=== PATIENT | female | born 1955 | race Caucasian/White ===

== ENCOUNTER 2019-09-12 11:04 | Outpatient (CLI) | payer OTHER ==
--- NOTE | 2019-09-13 10:00 | DEXA Report ---
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 Regions measured are the AP Spine, femoral neck, and if needed forearm. COMPARISON: None. In accordance with the International Society for Clinical Densitometry (ISCD) guidelines, data from previous exams may be reanalyzed using current recommendations and techniques. This is done to allow a more accurate basis for comparison with the current study. FINDINGS: The data for the lumbar spine is as follows: BMD (g/cm/cm) T-SCORE Z-SCORE REGION L1 1.103 -0.2 0.2 L2 1.309 0.9 1.3 L3 1.254 0.5 0.9 L4 1.341 1.2 1.6 TOTAL 1.255 0.6 1.0 NOTE: All evaluable vertebrae are used for classification The data for the hip is as follows: BMD (g/cm/cm) T-SCORE Z-SCORE REGION Neck 0.878 -1.2 -0.5 TOTAL 0.932 -0.6 -0.3 NOTE: The femoral neck or total proximal femur, whichever is lowest, is used for classification. IMPRESSION: THE WHO CLASSIFICATION BASED ON THE INTERNATIONAL REFERENCE STANDARD IS OSTEOPENIA. THE FRACTURE RISK IS INCREASED. RECOMMENDATION: Patients with diagnosis of osteoporosis or osteopenia should have regular bone mineral density assessment. For those eligible for Medicare, routine testing is allowed once every 2 years. Testing frequency can be increased for patients who have rapidly progressing disease or for those who are receiving medical therapy to restore bone mass. COMMENT: World Health Organization (WHO) definitions for osteoporosis and osteopenia: NORMAL BMD: T-score at -1.0 or higher, fracture risk is low OSTEOPENIA BMD: T-score between -1.0 and -2.5, fracture risk is increased. OSTEOPOROSIS BMD: T-score at -2.5 or lower, fracture risk is high. National Osteoporosis Foundation recommends: 1. Obtain adequate dietary calcium (at least 1200 mg per day) and vitamin D (400-800 international units per day). 2. Participate, as appropriate, in regular weightbearing and muscle-strengthening exercise. 3. Avoid tobacco use and reduce alcohol and caffeine intake. 4. For more detailed information see the website at www.NOF.org.
== END 2019-09-12 11:05 | disposition home or self-care (01) ==
LOC: DI 11:04
PROVIDERS: ATTEND Family Medicine
DX: M85.88 Other specified disorders of bone density and structure, other site (principal)
CPT/HCPCS: 77080

== ENCOUNTER 2021-04-13 10:48 | Outpatient (CLI) | payer MEDICARE, OTHER ==
--- NOTE | 2021-04-13 22:01 | SLEEP CARE CONSULTATION ---
Information from patient questionnaire entered by Dilcia Gomez. I have reviewed and concur with the information entered by Dilcia Gomez. This document represents the service I personally performed and the decisions made by me, Ezio Jones MD, [facility]. History of Present Illness Service Date and Time: 04/13/2021 1048 Reason for Visit: New patient Chief Complaint: reports: Insomnia, Unrefreshed sleep, Snoring, Excessive daytime sleepiness, Fatigue, Frequent awakenings at night, Other (night terrors, RLS) Date of Onset: many for 5 years plus Usual bedtime: varies Time it takes to fall asleep: I get up if I haven't fallen asleep within an hour, try again Snores at night: Yes Observed to quit breathing while asleep: No Sleeps alone due to snoring: No (once or twice) Number of times waking at night: 4-8 Reasons for waking at night: reports: Snoring, Pain, Bathroom, Other (night terrors, RLS, me yelling out) Toss, Turn, or Twitch while sleeping: Yes Recalls having dreams: Yes (sometimes) Usually gets out of bed at: 7-9 am Feels refreshed in the morning: No Morning headache: Yes (sometimes, resolves between 10am - 12pm) Sleepy or fatigued during the day: Yes Ever fallen asleep while driving: No Takes day naps: No Dreams during day naps: Yes Prior sleep studies: No Additional HPI information: I have the pleasure of seeing Ms. Salazar today regarding the possibility of her having obstructive sleep apnea. As you know, she is a 65 year old lady who complains of loud snore, frequent awakenings, insomnia, night terrors, and restless leg syndrome. She reports having had intermittent symptoms throughout her life but worse this past year. Her sleep pattern also shifted from 11 pm 6 am to 2 am 9 am. She has not been working and has no particular time she must get up. She snores loudly according to her . He has never seen her quit breathing. She complains of restless leg syndrome that bothers her more in the evenings. Walking around only helps partially. At night, her legs kick. She as night terrors that involve sitting up and screaming. During the day she feels tired but does not take a nap. She takes Ritalin 10 mg 2 to 4 times a day for attention deficit disorder. She has a son that has obstructive sleep apnea-hypopnea. 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 Patient is and lives in [place]. Have you smoked in the past 12 months: No Alcohol use: No Caffeine use: Yes Caffeine amount and frequency: 3-5 cups daily Family History Family history of sleep disordered breathing: Yes Family Hx Sleep Apnea: Father: Snoring, Sibling: Snoring, Other: Sleep apnea - Treated (son) Allergies and Home Medications Drug allergies reviewed: Yes Home medication list reviewed: Yes Review of Systems Weight gain over past 5 years: 40 Cardiovascular: reports: have to sleep sitting up Respiratory: reports: shortness of breath, wheeze, sputum production, chronic cough Gastrointestinal: reports: heartburn, nausea Urinary: reports: frequency, urgency Neurological: reports: headaches, gait or balance problems Psychiatric: reports: Attention Deficit Hyperactivity Ear/Nose/Throat: reports: nasal congestion, sinus problems, dry mouth/throat, hoarseness Endocrine: reports: thyroid disease, sluggishness, too hot or cold, excessive thirst, increased urination Musculoskeletal: reports: joint pain, neck pain, back pain, joint swelling, muscle pain or cramping, mobility problems Immunologic: reports: sneezing, rash, itching, allergies to food or environment Physical Exam Vital signs obtained and entered by: Dr. Jones Blood Pressure: 180/90 Cuff size: regular Heart Rate: 77 O2 Saturation: 97 Weight: 240 lb Neck circumference: 16 Mood/affect: normal HEENT: No craniofacial malformation Nostrils: patent to airflow Turbinates: normal Septum: midline Mouth and throat: narrow oropharynx Soft palate: long Hard palate: normal Uvula: normal Uvula visualization: 25% Mallampati Class III Tongue: normal in size Tonsils: small Chin and jaw: normal size and position Neck: normal w/o lymphadenopathy or thyromegaly Heart: regular rate and rhythm Lungs: clear bilaterally Abdomen: soft, non-tender Extremities: 2+ edema Neurologic: intact, no focal deficits Impression and Plan IMPRESSION: 1. Obstructive Sleep Apnea-Hypopnea Syndrome, as evident by history of loud snoring, frequent awakenings during the night, unrefreshed sleep, cognitive impairment, and fatigue. Her STOPBANG score is 5 (S, T, B, A, N) which puts her at a high risk of having the sleep-disordered breathing. I recommend proceeding to polysomnography to confirm the diagnosis and to assess severity. If she has significant sleep disordered breathing, a manual CPAP titration study will also be performed to find the optimal treatment pressure. I informed the patient of what the sleep studies involve and after some discussi on, she agreed to proceed. 2. Night Terrors, most likely a non-REM parasomnia by her history. The precipitating factor is unclear but obstructive sleep apnea-hypopnea may be a contributing factor. 3. Restless leg syndrome. The sleep study can confirm the diagnosis by demonstrating frequent periodic leg movement of sleep. The patient does have lo w iron level but normal ferritn level. She is not anemic. 4. Circadian Rhythm Disorder. Not having to wake up to a working schedule last year can cause delayed sleep phase syndrome. Ritalin could be a contributing factor. To correct it, all she has to do is set an alarm clock to slowly wake up earlier, e.g. 30 60 minutes earlier/week. Bright light exposure in the morning when she first get up in the morning can help to reset her circadian rhythm. Plan: 1. Schedule polysomnography +/- manual CPAP titration study and return in 1 to 2 weeks after the study to discuss result and initiate therapy. 2. Wake up earlier by half an hour a week by using an alarm clock. 3. Attempt to lose weight. 4. Consider iron supplement Follow up recommended for: Weight management Time Spent with Patient (minutes): 30
[2021-04-13 22:02] VITALS: BP 180/90
== END 2021-04-13 10:49 | disposition home or self-care (01) ==
LOC: SC 10:48
PROVIDERS: ATTEND Internal Medicine Pulmonary Disease
DX: G47.8 Other sleep disorders (principal); R06.83 Snoring; R53.83 Other fatigue; R41.89 Other symptoms and signs involving cognitive functions and awareness
CPT/HCPCS: 99203; G0463; 99212

== ENCOUNTER 2021-04-29 20:31 | Outpatient (CLI) | payer MEDICARE, OTHER | END 2021-04-29 20:32 | disposition home or self-care (01) | LOC: SC 20:31 | PROVIDERS: ATTEND Internal Medicine Pulmonary Disease | DX: G47.33 Obstructive sleep apnea (adult) (pediatric) (principal); G47.61 Periodic limb movement disorder | CPT/HCPCS: 95810 ==

== ENCOUNTER 2021-05-11 15:23 | Outpatient (CLI) | payer MEDICARE, OTHER ==
--- NOTE | 2021-05-11 16:42 | SLEEP CARE CONSULTATION ---
Information from patient questionnaire entered by Dilcia Gomez. I have reviewed and concur with the information entered by Dilcia Gomez. This document represents the service I personally performed and the decisions made by me, Ezio Jones MD, [facility]. History of Present Illness Service Date and Time: 05/11/2021 1523 Initial Brandon Sleepiness Scale score: 7 (in 2020) Current Brandon Sleepiness Scale score: 4 Additional HPI information: HPI: Ms. Salazar returned for follow up of the sleep study she had on 04-29-21. The polysomnography showed that the patient had slightly reduced sleep efficiency due to sleep onset insomnia. The sleep architecture was abnormal for sleep fragmentation and reduced amount of time spent in REM sleep. Respiratory monitoring showed mild obstructive sleep apnea-hypopnea (AHI = 8.2) associated with frequent arousals, oxyhemoglobin desaturation and mild hypoxia (nadege oxygen saturation of 88%). The respiratory events occurred mainly during supine sleep (supine AHI = 8.5; non-supine = 5.61). Snore was moderate in intensity. There was severe periodic leg movement of sleep contributing to the sleep fragmentation. Cardiac rhythm was normal sinus rhythm without significant arrhythmia. No abnormal behavior (parasomnia) observed during the night. The patient was informed of these findings. I explained to her the pathophysiology behind obstructive sleep apnea. We then spent quite a bit of time discussing different treatment options. For mild obstructive sleep apnea, surgery and oral appliance are alternatives to nasal CPAP therapy but in moderate or severe cases, nasal CPAP is the most effective and reliable treatment. After some discussion, she opted to lose weight. She does not want to try the positive airway pressure therapy. She has a mandibular advancing device that she uses occasionally. Sleep Study - Results Type of Sleep Study: Polysomnography Prior sleep studies: No Allergies and Home Medications Drug allergies reviewed: Yes Home medication list reviewed: Yes Review of Systems Review of systems same as previous: Yes Physical Exam Height: 5 ft 2 in Weight: 240 lb Body Mass Index: 43.9 BMI Classification: Morbidly Obese Impression and Plan IMPRESSION: 1. Obstructive Sleep Apnea-Hypopnea Syndrome, mild. It is no unreasonable to not do anything at this time and to gradually lose weight. At the present, there is no clear benefit in treating mild obstructive sleep apnea- hypopnea except in reducing excessive daytime sleepiness. 2. Periodic leg movement of sleep and restless leg syndrome. The cause of periodic leg movement of sleep is typically unknown. Few known causes are iron deficiency, renal failure, and selective serotonin reuptake inhibitors. Iron and ferritin levels are recommended in addition to the routine blood work. PLAN: 1. Try to lose weight. 2. Return for a follow up on as needed basis, especially if she gains weight. Visit Type: In Office Time Spent with Patient (minutes): 15 Provider Statement: I spent 100% of the Face to Face Visit with the patient with greater than 50% spent counseling the patient and coordination of care.
== END 2021-05-11 15:24 | disposition home or self-care (01) ==
LOC: SC 15:23
PROVIDERS: ATTEND Internal Medicine Pulmonary Disease
DX: G47.33 Obstructive sleep apnea (adult) (pediatric) (principal); G25.81 Restless legs syndrome; G47.61 Periodic limb movement disorder; E66.01 Morbid (severe) obesity due to excess calories; Z68.41 Body mass index [BMI] 40.0-44.9, adult
CPT/HCPCS: 99212; G0463